=== PATIENT | female | born 1950 | race Caucasian/White ===

== ENCOUNTER → 2020-07-14 11:28 | Outpatient (REF) | payer MEDICARE, OTHER, SELFPAY | LOC: ANHLAB 11:28 | PROVIDERS: PCP Internal Medicine; Visit Provider Nurse Practitioner | DX: D04.62 Carcinoma in situ of skin of left upper limb, including shoulder (principal) | CPT/HCPCS: 88305 ==

== ENCOUNTER → 2020-08-24 09:18 | Outpatient (REF) | payer MEDICARE, OTHER, SELFPAY | LOC: ANHLAB 09:18 | PROVIDERS: PCP Internal Medicine; Visit Provider Nurse Practitioner | DX: C44.629 Squamous cell carcinoma of skin of left upper limb, including shoulder (principal) | CPT/HCPCS: 88305; 88331 ==